=== PATIENT | male | born 1940 | race Caucasian/White ===

== ENCOUNTER 2024-11-09 08:20 | Outpatient (RCR) | payer MEDICARE, SELFPAY ==
--- NOTE | 2024-11-09 08:45 | PTOPEVAL1 ---
Assessment and note entered by Caio Bridges Evaluation Information Assessment Status Evaluation ICD-10 Condition Codes (PT) Pain in left shoulder M25.512 Onset 08/26/24 Subjective Information Pt. reports that he fell at the beginning of August. He reports he slipped getting out of his truck. He reports that he fell onto the left arm . He reports that he went to the doctor one week after. He reports that he underwent films and he has a rotator cuff tear. He states that he did get a cortisone shot which helped to reduce his pain. He describes most pain on top of the left shoulder. Reported Pain Level Pain Score 7: Self Report Assessment PT Clinical Summary Pt. is an 84 year old male who enters the clinic with left shoulder pain due to OA. He presents with impaired left u.e. strength, impaired left shoulder ROM, pain and functional decline. Continued skilled PT is indicated in order to improve these areas to allow the pt. to be able to complete all IADL's without complication. Plan of Care Interventions Electrical Stimulation,Hot Pack/Cold Pack,Manual Therapy,Neuro Re-education,Patient/Caregiver Education,Therapeutic Activities,Therapeutic Exercise PT Services Indicated Yes Treatment Frequency and 2x/week x 10 visits Duration These treatments will address the objective and functional deficits as defined above. The patient will be advanced safely and appropriately in order for the patient to progress towards his/her prior level of function. Additional exercises will be introduced and as well as a comprehensive home exercise program upon discharge, if needed, ?to ensure carryover of functional gains achieved in the clinic. This treatment plan has been reviewed and agreement upon by the patient.
--- NOTE | 2024-11-13 08:36 | PCPTNOTE ---
Patient called & cancelled scheduled appointment this date due to illness.
--- NOTE | 2024-11-13 16:58 | PCPTNOTE ---
Patient called & cancelled scheduled appointment this date due to illness.
--- NOTE | 2025-02-01 06:54 | PCPTNOTE ---
Mr. Barnes attended his initial evaluation on 11/09/24. He contacted the clinic after stating that he could not afford his co-pay and could not attend therapy. He was provided a home exercise program and will be discharged from our care.
== END 2024-11-09 20:00 | disposition home or self-care (01) ==
LOC: CHSPT 08:20
DX: M25.512 Pain in left shoulder (principal)
CPT/HCPCS: 97014; 97110; 97161; G0283